=== PATIENT | female | born 1975 | race African-American/Black ===

== ENCOUNTER 2022-07-02 15:38 | Emergency (ER) | payer OTHER ==
[2022-07-02 16:40] LABS: HEMOGLOBIN 11.2 gm/dl (12.3-15.3); RED BLOOD COUNT 5.31 M/UL (4.00-5.10); WHITE BLOOD COUNT 4.7 K/UL (4.5-11.0)
[2022-07-02 17:08] LABS: BUN/CREATININE RATIO 7 (0-10)
== END 2022-07-02 20:14 | disposition home or self-care (01) ==
LOC: ER1 15:38
PROVIDERS: Nurse Practitioner
DX: R07.89 Other chest pain (principal); R20.2 Paresthesia of skin; F14.10 Cocaine abuse, uncomplicated; F12.10 Cannabis abuse, uncomplicated; I11.0 Hypertensive heart disease with heart failure; I50.9 Heart failure, unspecified; E11.9 Type 2 diabetes mellitus without complications; J45.909 Unspecified asthma, uncomplicated; F17.210 Nicotine dependence, cigarettes, uncomplicated; Z88.6 Allergy status to analgesic agent
CPT/HCPCS: 71045; 80053; 80307; 81001; 82550; 82553; 83880; 84484; 85025; 93005; 99285

== ENCOUNTER 2022-07-10 22:28 | Emergency (ER) | payer OTHER | END 2022-07-11 00:09 | disposition home or self-care (01) | LOC: ER1 22:28 | DX: R13.10 Dysphagia, unspecified (principal); I50.9 Heart failure, unspecified; E11.9 Type 2 diabetes mellitus without complications; I11.0 Hypertensive heart disease with heart failure; F17.210 Nicotine dependence, cigarettes, uncomplicated; Z88.0 Allergy status to penicillin; Z88.6 Allergy status to analgesic agent; Z90.710 Acquired absence of both cervix and uterus | CPT/HCPCS: 99283 ==